=== PATIENT | male | born 1950 | race Caucasian/White ===

== ENCOUNTER 2018-10-20 10:02 | Inpatient (IN) ==
--- NOTE | 2018-09-23 12:14 | PAT Medication Instructions ---
Medication Instructions Date of Service September 23, 2018 Home Medications Coltrimazole-Betmame 1 dose TOPICAL NEEDED Xolair Injection 1 dose DIRECTED albuterol sulfate [Ventolin HFA] 1 - 2 puff INHALATION NEEDED aspirin [Aspir-81] 81 mg PO DAILY epinephrine [EpiPen] 0.3 mg IM Q3H NEEDED fluticasone 1 spray INTRANASAL DAILY fluticasone-vilanterol [Breo] 1 inh INHALATION DAILY hydrochlorothiazide 25 mg PO QAM montelukast 10 mg PO HS multivitamin [Multiple Vitamins] 1 tab PO DAILY nystatin-triamcinolone 1 applic TOPICAL NEEDED omeprazole 20 mg PO QAM simvastatin 20 mg PO HS tiotropium bromide [Spiriva] 2 puff INHALATION DAILY tramadol-acetaminophen 1 tab PO TID NEEDED trazodone 50 mg PO HS Continue as directed Xolair Injection 1 dose DIRECTED epinephrine [EpiPen] 0.3 mg IM Q3H NEEDED STOP taking 24 hours before surgery Coltrimazole-Betmame 1 dose TOPICAL NEEDED nystatin-triamcinolone 1 applic TOPICAL NEEDED DO NOT take the morning of surgery aspirin [Aspir-81] 81 mg PO DAILY fluticasone 1 spray INTRANASAL DAILY hydrochlorothiazide 25 mg PO QAM multivitamin [Multiple Vitamins] 1 tab PO DAILY Take morning of surgery With a small sip of water, OTHERWISE NOTHING TO EAT OR DRINK AFTER MIDNIGHT: albuterol sulfate [Ventolin HFA] 1 - 2 puff INHALATION NEEDED (Bring to hospital) fluticasone-vilanterol [Breo] 1 inh INHALATION DAILY omeprazole 20 mg PO QAM tiotropium bromide [Spiriva] 2 puff INHALATION DAILY tramadol-acetaminophen 1 tab PO TID NEEDED Take evening before surgery albuterol sulfate [Ventolin HFA] 1 - 2 puff INHALATION NEEDED montelukast 10 mg PO HS simvastatin 20 mg PO HS tramadol-acetaminophen 1 tab PO TID NEEDED trazodone 50 mg PO HS Other Notes If you have any questions please call us at [phone] or [phone] or [phone] or [phone]
--- NOTE | 2018-09-23 12:53 | Anesthesiology Consultation ---
Date of Service September 23, 2018 Assessment & Plan (1) Encounter for pre-operative examination: Chart Review Chart Review: Acceptable Risk for Surgery and Patient seen in Pre Admission Testing Consults Requested medical & cardiac (Dr. Ren (09/29)) Pulmonology (Dr. Harry (10/09)) Patient was seen by PCPs office on 09/29/18. Note from that visit states "Patient is cleared for upcoming procedure from PCP standpoint pending EKG and clearance from cardio" Patient was seen by cardiology on 10/13/18 and note states that "He is optimized from a cardiology standpoint for his upcoming surgery." Patient was seen by pulmonology on 10/09/18 and note states that "Patient cleared for surgery under general anesthesia as well as spinal anesthesia. Patient aware of risk involved from surgery patient is aware that he may have acute exacerbation of his asthma/pneumonia. Patient is at intermediate risk for pulmonary complications based on ariscat score index. Recommend to give him albuterol nebulization-up prior to the procedure. If need be to give him dexamethasone if has any wheezing." Teaching & Discussion Pre-Anesthesia Teaching/Discussion Notes: Instructed NPO after midnight before surgery, except medications with 15 cc of water. Medication instructions provided according to the PAT guidelines. History Surgery Operation Date: 10/20/18 10:55 Proposed Procedures p Right Total Knee Arthroplasty - Vik Purdy DO Height/Weight Height: 5 ft 10.5 in Weight: 132.9 kg Allergies Allergy/AdvReac Type Severity Reaction Status Date / Time house dust Allergy Unknown ALLERGIC Verified 09/16/18 10:59 PER ALLERGY TEST - NO REACTION WITH Penicillins Allergy Unknown Rash Verified 09/16/18 10:59 cut grass Allergy Unknown ALLERGIC Uncoded 09/16/18 11:31 PER ALLERGY TEST/NO REACTION WITH Medications Home Medications Medication Instructions Recorded Confirmed Last Taken Coltrimazole-Betmame 1 dose TOPICAL UD PRN 09/16/18 09/16/18 Unknown Xolair Injection 1 dose UD 09/16/18 09/16/18 Unknown albuterol sulfate [Ventolin HFA] 1 - 2 puff INHALATION UD PRN 09/16/18 09/16/18 Unknown aspirin [Aspir-81] 81 mg PO DAILY 09/16/18 09/16/18 Unknown epinephrine [EpiPen] 0.3 mg IM Q3H PRN 09/16/18 09/16/18 Unknown fluticasone 1 spray INTRANASAL DAILY 09/16/18 09/16/18 Unknown fluticasone-vilanterol [Breo 1 inh INHALATION DAILY 09/16/18 09/16/18 Unknown Ellipta] hydrochlorothiazide 25 mg PO QAM 09/16/18 09/16/18 09/16/18 montelukast 10 mg PO HS 09/16/18 09/16/18 09/15/18 multivitamin [Multiple Vitamins] 1 tab PO DAILY 09/16/18 09/16/18 Unknown nystatin-triamcinolone 1 applic TOPICAL UD PRN 09/16/18 09/16/18 Unknown omeprazole 20 mg PO QAM 09/16/18 09/16/18 09/16/18 simvastatin 20 mg PO HS 09/16/18 09/16/18 09/15/18 tiotropium bromide [Spiriva 2 puff INHALATION DAILY 09/16/18 09/16/18 Unknown Respimat] tramadol-acetaminophen 1 tab PO TID PRN 09/16/18 09/16/18 Unknown trazodone 50 mg PO HS 09/16/18 09/16/18 09/15/18 Past Medical History Medical History Acid reflux Amputation, finger, traumatic PARTIAL, 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 Asthma COPD (chronic obstructive pulmonary disease) pulm/Rajefhrao Hyperlipidemia Seasonal allergies Sleep apnea cpap Past Family History Family History Brother Family history of skin cancer Past Surgical History Surgical History History of Achilles tendon repair LEFT History of appendectomy History of colonoscopy History of dental surgery MULTIPLE TEETH PULLED History of hand surgery bone spur right wrist History of hernia repair multiple (BILATERAL INGUINAL, SEVERAL UMBILICAL AND VENTRAL) History of laparoscopic cholecystectomy History of rotator cuff surgery left History of tonsillectomy Hx of varicose veins SURGERY FOR/LEFT Past Anesthesia History No Hx of Anesthesia Complications and No Family Hx of Anesthesia Complications History of PONV No Motion Sickness Screening History of Motion Sickness: No Social History Smoking Status: Former smoker tobacco type: cigarettes Do You Dip or Chew Tobacco: No (HX OF) Smoking End Date: QUIT 30 + YRS AGO Hx Alcohol Use: Yes alcohol intake frequency: holidays/special occasions only (When fishing) Hx Substance Use: No substance use type: does not use Exercise / Class Metabolic Activity II 4-5 Yardwork/Stairs/Walk up hill (Limited due to knee pain. Climbs FOS without CP or SOB. ) Review of Systems Patient denies chest pain, shortness of breath, dyspnea on exertion, cough, palpitations. +joint pain (knees, right shoulder, back) +reflux (controlled by medications) +wheezing (COPD) Physical Exam Vital Signs BP: 153/89 P: 83 R: 20 T: 98.3 SPO2: 96% on RA Constitutional + morbidly obese ENMT Mouth: + dentures (upper and lower) and + edentulous Thyromental Distance: > or= 3.5 Finger Breadths (4) Mallampati Class: I Neck normal visual inspection, trachea midline, + thick neck and + facial hair ( Advised); neck extension not limited Respiratory normal respiratory effort Auscultation: lungs clear to auscultation bilaterally Cardiovascular Rate/Rhythm: regular rate and regular rhythm Heart Sounds: + murmur (3/6 systolic murmur) Vessels: no carotid bruit Neurologic moves all extremities Psychiatric Orientation: alert and oriented x 3 Testing Electrocardiogram Date: 09/23/18 Findings: + NSR @ (78) Chest X-Ray Date: 09/23/18 Findings: + NAD FINDINGS: The heart is the upper limits of normal in size. There is no failure. There is no focal pulmonary consolidation. There are no pleural effusions. Left basilar opacities are felt to reflect a combination of fat pad and subsegmental atelectatic change. Degenerative changes are present within the spine. IMPRESSION: No active disease in the chest. Echocardiogram Date: 10/06/18 EF: 63% RWMA: + none Valvular Disease: + no significant valvular disease Aortic sclerosis without stenosis or regurgitation. Increased LV size (59mm). Laboratory Results 09/23/18 13:34 09/23/18 13:34 Blood Type O Negative 09/23/18 13:35 Antibody Screen NEGATIVE 09/23/18 13:35 PT 11.9 Seconds (9.0-12.0) 09/23/18 13:34 INR 1.2 (0.9-1.1) H 09/23/18 13:34 APTT 32.4 Seconds (21.0-31.0) H 09/23/18 13:34 Hemoglobin A1c 6.2 % (4.5-5.6) H 09/23/18 13:34 Urine Color Yellow 09/23/18 Unknown Urine Appearance Clear (Clear) 09/23/18 Unknown Urine pH 6.5 (4.5-7.5) 09/23/18 Unknown Ur Specific [place] 1.018 (1.000-1.030) 09/23/18 Unknown Urine Protein Negative (Negative) 09/23/18 Unknown Urine Glucose (UA) Negative (Negative) 09/23/18 Unknown Urine Ketones Negative (Negative) 09/23/18 Unknown Urine Nitrite Negative (Negative) 09/23/18 Unknown Ur Leukocyte Esterase Negative (Negative) 09/23/18 Unknown 09/23/18 Unknown Urine Culture - Final Urine,Clean Catch No growth - less than 1,000 colonies/mL.
--- NOTE | 2018-09-23 14:09 | XRay Report ---
XR chest Pre-admission PA/Lat CLINICAL HISTORY: Preoperative chest COMPARISON STUDY: None FINDINGS: The heart is the upper limits of normal in size. There is no failure. There is no focal pul monary consolidation. There are no pleural effusions. Left basilar opacities are felt to reflect a co mbination of fat pad and subsegmental atelectatic change. Degenerative changes are present within the spine.[ IMPRESSION: No active disease in the chest. Electronically signed by: Hossein George M.D. 09/23/2018 2:08 PM
[2018-09-23 15:03] LABS: INR 1.2 (0.9-1.1); Partial Thromboplastin Ratio 1.2; Partial Thromboplastin Time 32.4 Seconds (21.0-31.0); Prothrombin Time 11.9 Seconds (9.0-12.0)
[2018-09-23 15:14] LABS: Albumin Level 3.8 gm/dl (3.4-5.0); BUN Creatinine Ratio 10.2 (10-20); Calcium 9.5 mg/dl (8.5-10.1); Creatinine Clr Calc Pharmacy 101.4 ml/min; Est GFR (African American) 91.6; Potassium 3.4 mmol/L (3.5-5.1)
[2018-09-23 15:17] LABS: Appearance Urine Clear (Clear); Bilirubin Urine Negative (Negative); Blood Urine Negative (Negative); Color Urine Yellow; Glucose Urine UA Negative (Negative); Ketones Urine Negative (Negative); Leukocyte Esterase Urine Negative (Negative); Nitrite Urine Negative (Negative); Protein Urine Negative (Negative); Specific Gravity Urine 1.018 (1.000-1.030); Urobilinogen Urine Negative (Negative); pH Urine 6.5 (4.5-7.5)
[2018-09-23 15:30] LABS: ALC (manual) 1.59 K/uL (1.2-3.4); Basophils # (manual) 0.15 K/uL (0-0.2); Basophils % (manual) 2.6 %; Eosinophils # (manual) 0.15 K/uL (0-0.5); Eosinophils % (manual) 2.6 %; Hematocrit (blood only) 47.1 % (42-52); Hemoglobin 15.9 g/dL (14.0-18.0); Lymphocytes # (manual) 0.87 K/uL (1.2-3.4); Lymphocytes % (manual) 14.8 %; Mean Corpuscular Hgb Conc 33.8 g/dL (32-36); Mean Corpuscular Volume 98.7 fL (80-100); Monocytes # (manual) 0.46 K/uL (0.11-0.59); Monocytes % (manual) 7.8 %; Platelet Count 101 K/uL (130-400); Platelet Estimate Decreased (Normal); RBC Morphology Unremarkable; RDW Standard Deviation 46.5 fL (36.4-46.3); Reactive Lymphocytes # (manual) 0.72 K/uL; Red Blood Count 4.77 M/uL (4.7-6.1); White Blood Count 5.89 K/uL (4.8-10.8)
[2018-09-24 05:47] LABS: Estimated Average Glucose 131 mg/dl; Hemoglobin A1C 6.2 % (4.5-5.6)
--- NOTE | 2018-10-18 12:38 | History & Physical Report ---
Date of Service October 18, 2018 Assessment & Plan (1) Degenerative joint disease of knee: I have indicated the patient for right total knee replacement. The risks , benefits and complications of surgery were explained to the patient which include but not limited to infection, acute blood loss, DVT/PE, injury to nerves , vessels, bone, soft tissue, arthrofibrosis, chronic pain, failure of the prosthesis, knee dislocation, leg length discrepancy, need for additional surgery, cardiac and pulmonary events and . The patient wished to proceed with surgery and informed consent was obtained at this time. We will plan for ASA 325 BID post-operatively for DVT prophylaxis. Upon discharge the patient will be discharged home with home health services. Appropriate clearances by PCP, cardio, pulm were obtained. History of Present Illness Chief Complaint: Right knee pain/djd Primary Care Provider: Enrico Harry The patient is a 68 year old male who presents with complaints of severe right knee pain and DJD. The patient has failed outpatient conservative treatments to this point which included NSAIDs, IA corticosteroid injection, home exercise/ walking program. The patient's pain and limited function have progressed to the point where they severely hinder their activities of daily living and they no longer tolerate exercise programs. They are requesting to proceed with total knee replacement surgery. Allergies Allergy/AdvReac Type Severity Reaction Status Date / Time house dust Allergy Unknown ALLERGIC Verified 10/20/18 10:26 PER ALLERGY TEST - NO REACTION WITH Penicillins Allergy Unknown Rash Verified 10/20/18 10:26 cut grass Allergy Unknown ALLERGIC Uncoded 10/20/18 10:26 PER ALLERGY TEST/NO REACTION WITH Home Medications Home Medications Medication Instructions Recorded Confirmed Type Coltrimazole-Betmame 1 dose TOPICAL UD PRN 09/16/18 10/20/18 History Xolair Injection 1 dose UD 09/16/18 10/20/18 History albuterol sulfate [Ventolin HFA] 1 - 2 puff INHALATION UD PRN 09/16/18 10/20/18 History aspirin [Aspir-81] 81 mg PO DAILY 09/16/18 10/20/18 History epinephrine [EpiPen] 0.3 mg IM Q3H PRN 09/16/18 10/20/18 History fluticasone 1 spray INTRANASAL DAILY 09/16/18 10/20/18 History fluticasone-vilanterol [Breo 1 inh INHALATION DAILY 09/16/18 10/20/18 History Ellipta] hydrochlorothiazide 25 mg PO QAM 09/16/18 10/20/18 History montelukast 10 mg PO HS 09/16/18 10/20/18 History multivitamin [Multiple Vitamins] 1 tab PO DAILY 09/16/18 10/20/18 History nystatin-triamcinolone 1 applic TOPICAL UD PRN 09/16/18 10/20/18 History omeprazole 20 mg PO QAM 09/16/18 10/20/18 History simvastatin 20 mg PO HS 09/16/18 10/20/18 History tiotropium bromide [Spiriva 2 puff INHALATION DAILY 09/16/18 10/20/18 History Respimat] tramadol-acetaminophen 1 tab PO TID PRN 09/16/18 10/20/18 History trazodone 50 mg PO HS 09/16/18 10/20/18 History Past Med/Surg History Medical History Acid reflux Amputation, finger, traumatic PARTIAL, 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 Asthma COPD (chronic obstructive pulmonary disease) pulm/Rajefhrao Hyperlipidemia Seasonal allergies Sleep apnea cpap Surgical History History of Achilles tendon repair LEFT History of appendectomy History of colonoscopy History of dental surgery MULTIPLE TEETH PULLED History of hand surgery bone spur right wrist History of hernia repair multiple (BILATERAL INGUINAL, SEVERAL UMBILICAL AND VENTRAL) History of laparoscopic cholecystectomy History of rotator cuff surgery left History of tonsillectomy Hx of varicose veins SURGERY FOR/LEFT Family History Brother Family history of skin cancer Social History Current Living Situation: Spouse Other Information That Helps Us Care for You: No Feels Safe at Home: Yes Smoking Status: Former smoker Tobacco Type: cigarettes Do You Dip or Chew Tobacco: No (HX OF) Smoking End Date: QUIT 30 + YRS AGO Hx Alcohol Use: Yes Alcohol Intake Frequency: holidays/special occasions only ( When fishing) Hx Substance Use: No Beliefs That Will Affect Care: None Preferred Language: Stateless Communication Ability: Effective Anesthesiology Resident Required: No Review of Systems All systems reviewed & are unremarkable except as noted in HPI & below Physical Exam 2 Physical Exam: RLE NVSI +EHL/FHL/TA/GS SILT grossly, +2 DP pulse, compartments soft NT, painful limited ROM, genuvarum, 5-115 degrees, +crepitus Constitutional: WD/WN, vitals as above Eyes: PERRL, conjunctivae normal, anicteric sclerae ENMT: external ear and nose normal, oropharynx normal Neck: trachea midline, no thyromegaly Respiratory: normal respiratory effort, lungs clear to auscultation Cardiovascular: RRR, no murmur, no edema Gastrointestinal (Abdomen): normal bowel sounds, soft, nontender, no hepatosplenomegaly Musculoskeletal: no cyanosis or clubbing, extremities motor strength 5/5 Skin: no rashes, warm and dry Neurologic: patellar DTR's 2+ bilat, sensation intact Psychiatric: A+Ox3, euthymic affect Genitourinary: no testicular masses, no penis abnormality Lymphatic: no cervical or axillary lymphadenopathy Results & Data Diagnostic Findings Multiple views of the knee demonstrates severe tricompartmental DJD with complete loss of the medial joint space, narrowing of the lateral compartment and PFJ. +osteophytes, +sclerosis, +subchondral cysts.
[~2018-10-20 10:02] MED LIST: ACETAMINOPHEN 500 MG TAB PO SCH; BUPIVACAINE 0.5 % 5 MG/1 ML PF 10ML VIAL ONE; CEFAZOLIN 3000MG 65 ML IV SCH; CeleBREX 200 MG CAP PO SCH; EPINEPHrine INJ 1 MG/ML AMP ONE; FAMOTIDINE 20 MG TAB PO SCH; LR 500ML BOLUS, THEN 15ML/HR IV SCH; METOCLOPRAMIDE HCL 10 MG TABLET PO SCH; ROPIVACAINE 0.5% 5 MG/ML 30 ML VIAL ONE; ROPIVACAINE 0.5% HCL/PF 150 MG, BUPIVACAINE 0.5% MPF 30 ML, EPINEPHrine 30MG/30ML (OR U... INFIL SCH; TRANEXAMIC ACID 1,000 MG **IV Intra-op IV SCH; TRANEXAMIC ACID 1,000 MG **IV Pre-op IV SCH; dexAMETHasone 4 MG TAB PO SCH
[2018-10-20] MEDS ORDERED: MIDAZOLAM HCL 1 MG/ML 2ML VIAL ONE (10:28)
[2018-10-20] MEDS ORDERED: KETAMINE HCL INJ 50 MG/ML 10 ML VIAL ONE (10:28)
[2018-10-20] MEDS ORDERED: BACITRACIN INJ 50,000 UNIT VIAL ONE (10:30)
[2018-10-20] MEDS ORDERED: POVIDONE-IODINE OP SOLN 30 ML BTL ONE (10:30)
[2018-10-20] MEDS ORDERED: ORTHO JOINT ANESTHETIC ONE (10:30)
--- NOTE | 2018-10-20 11:51 | History & Physical Bridge Note ---
Date of Service October 20, 2018 History & Physical Bridge Note I have examined the patient, reviewed the History & Physical and in the interval since the performance of the History & Physical I have noted the following changes of clinical significance: no changes noted
[2018-10-20] MEDS ORDERED: GLYCOPYRROLATE 0.2 MG/ML VIAL ONE (12:35)
[2018-10-20] MEDS ORDERED: LIDOCAINE HCL 2% 2 ML VIAL/AMP(20MG/ML) INFIL ONE (12:35)
[2018-10-20] MEDS ORDERED: DEXAMETHASONE SOD INJ 4 MG/ML VIAL ONE (12:35)
[2018-10-20] MEDS ORDERED: PROPOFOL IV EMULSION 10 MG/ML 20 ML VIAL IV ONE (12:35)
[2018-10-20] MEDS ORDERED: ONDANSETRON INJ 2 MG/ML 2 ML VIAL ONE (12:35)
[2018-10-20] MEDS ORDERED: fentaNYL citrate 100 MCG/2 ML VIAL ONE (12:42)
[2018-10-20] MEDS ORDERED: HYDROmorphone INJ 2 MG/ML SYR/VIAL ONE (13:03)
--- NOTE | 2018-10-20 14:05 | Post Operative Brief Note ---
Immediate Post Op Note v1 Date of Surgery October 20, 2018 Pre & Post Diagnosis Operation Date: 10/20/18 12:15 Pre-Op Diagnosis: Right Knee Osteoarthritis Post-Op Diagnosis: Right Knee Osteoarthritis Procedure Operation Date: 10/20/18 12:15 Actual Procedures p Right Total Knee Arthroplasty(Right) - Vik Purdy DO Surgeon Vik Purdy DO Patient Transporter Lobo Bojorquez Estimated Blood Loss 75 Findings Consistent with Post-Op Diagnosis Fluids 1200 cc Specimens Distal femur and proximal tibia bone fragments Anesthesia Type General Regional Complications none Disposition Disposition: Recovery Room Overlapping Procedure I was present for: the critical portions of procedure. I was immediately available: during the entire case. Back up surgeon: was not required during procedure.
--- NOTE | 2018-10-20 14:18 | Operative Report ---
Post Operative Report Pre & Post Diagnosis Operation Date: 10/20/18 12:15 Pre-Op Diagnosis: Right Knee Osteoarthritis Post-Op Diagnosis: Right Knee Osteoarthritis Procedure Operation Date: 10/20/18 12:15 Actual Procedures p Right Total Knee Arthroplasty(Right) - Vik Purdy DO Surgeon Vik Purdy DO Post Graduate Internship Lobo Bojorquez Estimated Blood Loss 75 Findings Consistent with Post-Op Diagnosis Fluids 1200cc Specimens Distal femur, proximal tibia bone fragment Anesthesia Type General Regional Complications none Disposition Disposition: Recovery Room Indications The patient is a 68-year-old male presents with long history of severe right knee tricompartmental DJD and failed outpatient conservative treatments including NSAIDs, bracing, injections and home walking/exercise program. The patient's symptoms have progressed to the point where it has been difficult to perform normal activities of daily living. I have indicated the patient for a right total knee arthroplasty, the risks and benefits and complications of the procedure include but are not limited to infection bleeding damage to bone, nerves, vessels, surrounding soft tissue, blood clots, loss of function, leg length discrepancy, dislocation, failure of the components, need for additional surgery and . The patient wished to proceed with surgery at this time and informed consent was obtained. Appropriate clearances were obtained. Description of Procedure Following induction of general anesthesia, a tourniquet was applied to the proximal aspect of the thigh and the patient's right leg was prepped and draped in the usual sterile manner. A timeout was performed and site linwood verified. Appropriate pre-operative IV antibiotics were given. The limb was e xsanguinated with an Esmarch bandage and tourniquet was inflated to 300 mmHg. A longitudinal midline incision was made over the anterior knee. Subcutaneous tissue was sharply dissected down to fascia. Electrocautery was used for hemostasis. Next a parapatellar arthrotomy was performed. Patella was everted and the knee was flexed. A Fox retractor was used to expose the synovium above on the anterior aspect of the femur and removed down to bone. Next, the anterior fat pad was removed to aid in visualization. The medial face of the tibia was cleared of soft tissue first with a Bovie and a urena elevator. This tissue was retracted posteriorly using a blunt Hohmann. Next, the extra-medullary tibial cutting guide was placed to the anterior aspect of the tibia. The tibia resection level was set taking 2mm from the defective tibial condyle. Resection depth was once again confirmed with faustino wing. The medial and lateral collateral ligament was protected with two Hohmann retractors. The tibia guide was removed and proximal tibial bone fragment removed utilizing straight osteotome, electrocautery and Lety. Next, the distal femur intramedullary canal was accessed utilizing the step drill. The intramedullary distal femur cutting guide was placed into the canal and pinned into place. The distal femur was cut on the 5 degree setting. Next the cutting guide was removed and the femur was sized. Care was taken to ensure appropriate cotton program technician all rotation and 3 degree holes were drilled. A size 11 4-in-1 cutting block was placed on the distal end of the femur and secured into place with two short headed screws. Two bent Hohmann retractors were placed to protect the medial and lateral collateral ligaments. The oscillating saw was used to cut anterior, posterior, anterior chamfer and posterior chamfer. The four and one cutting block was removed and bone fragments excised. Laminar lpta was placed laterally and the ACL and PCL were removed followed by the medial meniscus and posterior medial osteophytes. Aquamantys was utilized for any posterior medial bleeders and Orthomix injected into the posterior medial capsule. A laminar lpta was then placed in the medial compartment and the lateral meniscus and posterior osteophytes were removed. Aquamantys was utilized for any posterior lateral bleeders and Orthomix injected into the posterior lateral capsule. Next, drop zach and spacer block were placed with the leg in flexion and extension to assess alignment and flexion/extension gaps. Next, the proximal tibia was assessed and two bent Hohmans were placed medial and lateral to aid in visualization. The appropriate tibia size and rotation was selected and a size H tibial plate was pinned into place with appropriate r otation. Preparation of the tibia was completed utilizing the matching tibial drill for 14 x 30mm stem extension and broach. I then turned my attention back to the distal femur in a trial femoral component was impacted into place. Appropriate femoral width was assessed and selected. Next the femur PS box cut guide was placed and cut made with the reciprocal saw and the PS box provisional placed. A trial size 11 PS tibia articular tray was placed and varus-valgus balance assessed in 0 degrees of extension and 30, 60 and 90 degrees of flexion. A final tibial articular surface size 11 PS was chosen. Assess was gained to the patella and caliper utilized to measure width. The patella reamer was utilized and remaining bone removed with oscillating saw. A size 38 patella button was selected and the patella pegs drilled. Trial patella button was placed and tracking was assessed. The knee was found to be well balanced, well aligned with excellent patella tracking. The trials were removed and final components were obtained and assembled. The knee was irrigated copiously with sterile saline solution mixed with bacitracin. Access to the proximal tibia was once again obtained utilizing to the Hohmans and the proximal tibia and distal femur were dried with lap sponges. The final components were cemented into place and all excess cement was removed. A trial tibial articular surface was placed while cemented hardened. Knee stability was once again assessed and the final component inserted. The knee was injected with the remaining Orthomix which includes a combination of Ropivicaine 0.5% 150mg, Bupivicaine 0.5%/Epinephrine 1:200,000 30ml, Toradol 30mg, Dexamethasone 4mg, Ketamine 10mg, Clonidine 100mcg and NSS 30ml solution and irrigated once more with sterile saline solution mixed with bacitracin. The capsulotomy was closed with #1 Vicryl followed by subcutaneous closure with 2-0 Vicryl suture and a 3-0 V-lock suture. Skin closure was performed using martha, sterile dressings silverlong were applied followed by amena wrap. The patient tolerated the procedure well and was taken to the PACU in stable condition. Due to the complex nature of the procedure, the entire surgery was performed with the operational assistance of Lobo Bojorquez PA-C. The fish hatchery assistant, under direct supervision, was involved in the actual performance of all aspects of the surgical procedure including patient positioning, hemostasis, tissue retraction, instrument management and wound closure. I attest to the content of the Intraoperative Record and any orders documented therein. Any exceptions are noted below.
--- NOTE | 2018-10-20 14:55 | XRay Report ---
XR knee RT 2V routine CLINICAL HISTORY: Surgical Post Op COMPARISON: None. DISCUSSION: Anatomic alignment post total right knee arthroplasty. Good contact between prosthetic an d underlying bone. Expected postoperative soft tissue change. IMPRESSION: Anatomic alignment post total right knee arthroplasty. The above report was generated using voice recognition software. It may contain grammatical, syntax or spelling errors. Electronically signed by: Srini Donovan M.D. 10/20/2018 2:54 PM
--- NOTE | 2018-10-20 15:17 | Anesthesiology Progress Note ---
Date of Service October 20, 2018 Anesthesia Post Procedure Vital Signs Vital Signs: Temp Pulse Pulse Resp BP Pulse Ox 10/20/18 15:07 86 15 104/67 92 10/20/18 15:00 86 11 L 99/61 L 92 10/20/18 14:50 89 20 103/62 93 10/20/18 14:41 36.8 C 90 20 103/58 L 93 10/20/18 10:20 36.8 C 84 18 132/88 96 Notes Mental Status: alert / awake / arousable Patient Amnestic to Procedure: Yes Nausea / Vomiting: adequately controlled Pain: adequately controlled Airway Patency, RR, SpO2: stable & adequate BP & HR: stable & adequate Hydration State: stable & adequate Anesthetic Complications: no major complications apparent Notes: Awake, doing well, no complaints. VSS.
[2018-10-20] MEDS ORDERED: HYDROmorphone INJ 0.5 MG/0.5 ML SYR IV PRN (15:48)
[2018-10-20] MEDS ORDERED: ALBUTEROL HFA 8 GM INHALER INH PRN (15:48)
[2018-10-20] MEDS ORDERED: METOCLOPRAMIDE HCL INJ 5 MG/ML 2 ML VIAL IV PRN (15:48)
[2018-10-20] MEDS ORDERED: NALOXONE HCL 0.4 MG/1 ML VIAL/CARP IV PRN (15:48)
[2018-10-20] MEDS ORDERED: ONDANSETRON INJ 2 MG/ML 2 ML VIAL IV PRN (15:48)
[2018-10-20] MEDS ORDERED: BISACODYL 10 MG SUPP PR PRN (15:48)
[2018-10-20] MEDS ORDERED: MAGNESIUM HYDROXIDE SUSP 30 ML UDC PO PRN (15:48)
[2018-10-20] MEDS: KETOROLAC TROMETHAMINE 15 MG/ML VIAL IV SCH ×2 (16:22→22:36)
--- NOTE | 2018-10-20 18:33 | Orthopedic Progress Note ---
Date of Service October 20, 2018 Assessment & Plan (1) Degenerative joint disease of knee: s/p R TKA -ancef x 24 -DVT ppx ASA BID, SCDs, TEDS -WBAT RLE -PT/OT -PO XR demonstrates a well aligned well fixed orthopedic prosthesis without evidence of fracture or dislocation -am labs -DC planning: home with HH Subjective Post Operative Progress Note Patient seen sitting up in bed, comfortable, denies complaints, pain well controlled, no acute issues. Physical Exam 2 Vital Signs (Past 24 Hours): Last Vital Signs Temp 36.7 C 10/20/18 16:41 Pulse 89 10/20/18 17:41 Resp 17 10/20/18 17:41 BP 122/73 10/20/18 17:41 Pulse Ox 97 10/20/18 17:41 Physical Exam: RLE NVSI +EHL/FHL/TA/GS SILT grossly, +2 DP pulse, compartments soft NT, dressing cdi. Constitutional: WD/WN, vitals as above
[2018-10-20] MEDS: SODIUM CHLORIDE 0.9% 1000ML 1,000 ML IV SCH (21:13)
[2018-10-20] MEDS: CEFAZOLIN 2000MG 2,000 MG/15 ML SYR IV SCH (21:13)
[2018-10-20] MEDS: MONTELUKAST SODIUM 10 MG TABLET PO SCH (21:28)
[2018-10-20] MEDS: SENNA 8.6 MG TAB PO SCH (21:28)
[2018-10-20] MEDS: DOCUSATE SODIUM 100 MG CAP PO SCH (21:29)
[2018-10-20] MEDS: SIMVASTATIN 20 MG TAB PO SCH (21:29)
[2018-10-20] MEDS: ASPIRIN 325 MG ECTAB PO SCH (21:29)
[2018-10-20] MEDS: ACETAMINOPHEN 500 MG TAB PO SCH (22:35)
[2018-10-21] MEDS: SODIUM CHLORIDE 0.9% 1000ML 1,000 ML IV SCH (03:30)
[2018-10-21] MEDS: CEFAZOLIN 2000MG 2,000 MG/15 ML SYR IV SCH (03:31)
[2018-10-21] MEDS: KETOROLAC TROMETHAMINE 15 MG/ML VIAL IV SCH ×2 (03:31→09:49)
[2018-10-21] MEDS: ACETAMINOPHEN 500 MG TAB PO SCH ×3 (05:31→22:37)
[2018-10-21 06:24] LABS: Hematocrit (blood only) 41.3 % (42-52); Hemoglobin 13.7 g/dL (14.0-18.0); Mean Corpuscular Hgb Conc 33.2 g/dL (32-36); Mean Corpuscular Volume 97.6 fL (80-100); RDW Standard Deviation 45.8 fL (36.4-46.3); Red Blood Count 4.23 M/uL (4.7-6.1); White Blood Count 10.45 K/uL (4.8-10.8)
[2018-10-21 06:30] LABS: Mean Platelet Volume 11.9 fL (7.4-10.4); Platelet Count 76 K/uL (130-400)
[2018-10-21] MEDS ORDERED: Nursing to Pharmacy Communication ONE (06:43)
[2018-10-21 06:54] LABS: BUN Creatinine Ratio 17.2 (10-20); Creatinine Clr Calc Pharmacy 80.5 ml/min; Est GFR (African American) 69.8; Est GFR (Non-African American) 60.2; Potassium 3.7 mmol/L (3.5-5.1)
--- NOTE | 2018-10-21 07:32 | Anesthesiology Progress Note ---
Date of Service October 21, 2018 Anesthesia Post Procedure Vital Signs Vital Signs: Temp Pulse Pulse Pulse Resp BP BP 10/21/18 02:44 36.8 C 73 17 119/72 10/20/18 23:32 37.1 C 93 H 17 113/69 10/20/18 19:08 37.2 C 96 H 18 138/86 10/20/18 17:41 89 17 122/73 10/20/18 16:41 36.7 C 87 18 130/79 10/20/18 16:12 36.6 C 83 18 128/79 10/20/18 15:50 37.0 C 89 18 123/75 10/20/18 15:20 36.6 C 84 17 104/74 10/20/18 15:10 86 15 104/67 10/20/18 15:00 86 11 L 99/61 L 10/20/18 14:50 89 20 103/62 10/20/18 14:41 36.8 C 90 20 103/58 L 10/20/18 10:20 36.8 C 84 18 132/88 Pulse Ox 10/21/18 02:44 98 10/20/18 23:32 93 10/20/18 19:08 96 10/20/18 17:41 97 10/20/18 16:41 97 10/20/18 16:12 97 10/20/18 15:50 95 10/20/18 15:20 94 10/20/18 15:10 92 10/20/18 15:00 92 10/20/18 14:50 93 10/20/18 14:41 93 10/20/18 10:20 96 Pain Intensity Right Knee: Pain Intensity: 8 Notes Mental Status: alert / awake / arousable and participated in evaluation Patient Amnestic to Procedure: Yes Nausea / Vomiting: adequately controlled Pain: adequately controlled Airway Patency, RR, SpO2: stable & adequate BP & HR: stable & adequate Hydration State: stable & adequate Anesthetic Complications: no major complications apparent and Pt Satisfied with anesthetic care
[2018-10-21] MEDS: hydroCHLOROthiazide 25 MG TAB PO SCH (08:45)
[2018-10-21] MEDS: ASPIRIN 325 MG ECTAB PO SCH ×2 (08:45→21:34)
[2018-10-21] MEDS: FLUTICASONE PROPIONATE NA SPR 16 GM BTL SCH (08:45)
[2018-10-21] MEDS: MULTIVITAMIN TAB PO SCH (08:45)
[2018-10-21] MEDS: DOCUSATE SODIUM 100 MG CAP PO SCH ×2 (08:45→21:34)
[2018-10-21] MEDS: TIOTROPIUM BROMIDE 5 PUFF/90 MCG INH INH SCH (08:46)
--- NOTE | 2018-10-21 09:10 | Progress Note ---
DATE: 10/21/2018 SUBJECTIVE: The patient is postop day 1, status post right total knee arthroplasty by Dr. Purdy. The patient is currently sitting up in bed and is awake and alert and oriented. He currently has no complaints. Pain is controlled. Denies shortness of breath, chest pain or lightheadedness. He states that he had a relatively good night and that he is hoping to possibly go home today depending on how he does with his physical therapy and pain control. OBJECTIVE: Dressings are clean, dry and intact. Calves were soft, nontender. Neurovascularly intact. Toes were mobile. ASSESSMENT: Postop day #1 status post right total knee arthroplasty. PLAN: The patient will be started on PT and OT protocols today and we will continue DVT prophylaxis with aspirin p.o. b.i.d., SCDs and KAREN jose mariae. We will continue his current pain regimen and we will recheck him later today to see how he is progressing with his physical therapy. Hemoglobin of note is a 13.7 and vital signs are stable.
[2018-10-21] MEDS: PANTOprazole 40 MG TAB PO SCH (09:49)
[2018-10-21] MEDS: OXYCODONE HCL IR 5 MG TAB (IMMEDIATE RELEASE) PO PRN ×3 (11:11→19:55)
[2018-10-21] MEDS: MONTELUKAST SODIUM 10 MG TABLET PO SCH (21:34)
[2018-10-21] MEDS: CeleBREX 200 MG CAP PO SCH (21:35)
[2018-10-21] MEDS: SIMVASTATIN 20 MG TAB PO SCH (21:35)
[2018-10-21] MEDS: SENNA 8.6 MG TAB PO SCH (21:35)
[2018-10-22] MEDS: OXYCODONE HCL IR 5 MG TAB (IMMEDIATE RELEASE) PO PRN ×3 (03:13→11:54)
[2018-10-22] MEDS: ACETAMINOPHEN 500 MG TAB PO SCH (05:47)
[2018-10-22 06:15] LABS: Hematocrit (blood only) 41.1 % (42-52); Hemoglobin 13.4 g/dL (14.0-18.0); Mean Corpuscular Hgb Conc 32.6 g/dL (32-36); Mean Corpuscular Volume 97.6 fL (80-100); Mean Platelet Volume 11.3 fL (7.4-10.4); Platelet Count 76 K/uL (130-400); RDW Coefficient of Variation 13.2 % (11.5-14.5); RDW Standard Deviation 46.9 fL (36.4-46.3); Red Blood Count 4.21 M/uL (4.7-6.1); White Blood Count 8.59 K/uL (4.8-10.8)
[2018-10-22 07:00] LABS: BUN Creatinine Ratio 24.2 (10-20); Calcium 8.1 mg/dl (8.5-10.1); Creatinine Clr Calc Pharmacy 101.8 ml/min; Est GFR (African American) 92.7; Potassium 3.8 mmol/L (3.5-5.1)
[2018-10-22] MEDS: ASPIRIN 325 MG ECTAB PO SCH (08:38)
[2018-10-22] MEDS: FLUTICASONE PROPIONATE NA SPR 16 GM BTL SCH (08:38)
[2018-10-22] MEDS: CeleBREX 200 MG CAP PO SCH (08:38)
[2018-10-22] MEDS: MULTIVITAMIN TAB PO SCH (08:38)
[2018-10-22] MEDS: PANTOprazole 40 MG TAB PO SCH (08:38)
[2018-10-22] MEDS: DOCUSATE SODIUM 100 MG CAP PO SCH (08:38)
[2018-10-22] MEDS: hydroCHLOROthiazide 25 MG TAB PO SCH (08:38)
[2018-10-22] MEDS: TIOTROPIUM BROMIDE 5 PUFF/90 MCG INH INH SCH (08:39)
--- NOTE | 2018-10-22 08:44 | Progress Note ---
DATE: 10/22/2018 SUBJECTIVE: The patient is postop day #2 status post right total knee arthroplasty. He is currently lying in bed, doing his bedside exercises. He is doing his heel props at this time without any difficulty. His pain is controlled and he has no complaints. He denies shortness of breath, chest pain or lightheadedness. He is hoping to go home today. OBJECTIVE: Dressings are clean, dry and intact with the Silverlon. Calves were soft, nontender. Neurovascularly intact. Toes were mobile. ASSESSMENT: Postoperative day #2 status post right total knee arthroplasty. PLAN: Continue PT, OT protocols today. Continue DVT prophylaxis and pain management. Plan for discharge to home today with home health services.
--- NOTE | 2018-10-25 19:04 | Discharge Summary ---
Date of Service October 25, 2018 Admission HPI Per Admitting Provider The patient is a 68 year old male who presents with complaints of severe right knee pain and DJD. The patient has failed outpatient conservative treatments to this point which included NSAIDs, IA corticosteroid injection, home exercise/walking program. The patient's pain and limited function have progressed to the point where they severely hinder their activities of daily living and they no longer tolerate exercise programs. They are requesting to proceed with total knee replacement surgery. Principal Diagnosis Right total knee replacement Discharge Exam RLE NVSI +EHL/FHL/TA/GS SILT grossly, +2 DP pulse, compartments soft NT, dressing cdi. Constitutional WD/WN, vitals as above Eyes PERRL, conjunctivae normal, anicteric sclerae ENMT external ear and nose normal, oropharynx normal Neck trachea midline, no thyromegaly Respiratory normal respiratory effort, lungs clear to auscultation Cardiovascular RRR, no murmur, no edema Gastrointestinal (Abdomen) normal bowel sounds, soft, nontender, no hepatosplenomegaly Musculoskeletal no cyanosis or clubbing, extremities motor strength 5/5 Skin no rashes, warm and dry Neurologic patellar DTR's 2+ bilat, sensation intact Psychiatric A+Ox3, euthymic affect Genitourinary no testicular masses, no penis abnormality Lymphatic no cervical or axillary lymphadenopathy Discharge Data Allergies Allergy/AdvReac Type Severity Reaction Status Date / Time house dust Allergy Unknown ALLERGIC Verified 10/20/18 10:26 PER ALLERGY TEST - NO REACTION WITH Penicillins Allergy Unknown Rash Verified 10/20/18 10:26 cut grass Allergy Unknown ALLERGIC Uncoded 10/20/18 10:26 PER ALLERGY TEST/NO REACTION WITH Consultations 10/20/18 15:48 Consult Case Management - Discharge Planning Routine Procedures Performed Operation Date: 10/20/18 12:15 Actual Procedures p Right Total Knee Arthroplasty(Right) - Vik Purdy DO Ordered Studies 10/20/18 05:00 US - OR guided needle placemen Routine Hospital Course (1) Degenerative joint disease of knee: The patient is a 68 -year-old male who presents with long standing history of severe right knee DJD and failed outpatient conservative treatments including NSAIDs, bracing, injections and home walking/exercise program. The patient's symptoms have progressed to the point where it has been difficult to perform even normal activities of daily living. I indicated the patient for a right total knee arthroplasty, the risks, benefits and complications of the procedure include but not limited to infection, bleeding, damage to bone, nerves, vessels, surrounding soft tissue, may develop blood clots, loss of function, leg length discrepancy, dislocation, failure of the components, loosening of the components, the need for additional surgery and . The patient wished to proceed with surgery at this time and informed consent was obtained. Hospital Course: On 10/20/18 the patient was taken to the operating room, adequate anesthesia administered and underwent a right total knee arthroplasty. The patient tolerated the procedure well and was taken to the PACU in stable condition. Post-operatively the patient was started on a DVT ppx medication and given appropriate IV antibiotics. Consults were placed to physical therapy, occupational therapy and case management. On POD#1, the patient did well overnight and their pain was well controlled. Labs were drawn and the Hgb was 13.7. The patient progressed well with PT. Dressings were changed at this time and the incision was clean, dry and intact. On POD#2, the patient continued to progress with PT meeting DC goals. Hgb was 13.4 The patients hospital stay was relatively uneventful and they were deemed stable by the orthopedic team and consultants to be discharged home with on 10/22/18. Discharge Instructions: Upon discharge the patient may weight bear as tolerates through their operative extremity. They were instructed to keep the incision clean and dry at all time s. The patient may shower but should not submerge the incision, avoid bathing, pools and hot tubes. The patient was given a script for pain medication and should take as instructed. The patient was given a script for DVT ppx ASA 325mg BID and should take as directed. The patient was instructed to not drive or travel for long distances until cleared to do so. If the patient develops any symptoms of fevers, chills, nausea, vomiting, increased redness, swelling, pain or drainage from the surgical site, they should notify the office and/or proceed to the nearest emergency room. The patient should follow up in 10-14 days after surgery for their routine post-operative follow-up appointment and should call the office to confirm the date and time. s/p R TKA -ancef x 24 -DVT ppx ASA BID, SCDs, TEDS -WBAT RLE -PT/OT -PO XR demonstrates a well aligned well fixed orthopedic prosthesis without evidence of fracture or dislocation -am labs -DC planning: home with HH Total Time Total Time Spent Total Time Spent (In Minutes): 45 minutes Total Time Includes: Examination of the Patient, Discharge Planning, Medication Reconciliation and Communication With Other Providers Discharge Plan Discharge Items Patient Disposition: Home - Home Health Services Reason For Visit: Right Knee Osteoarthritis Discharge Diagnosis: Right knee replacement Discharge Goals: Decrease discomfort, Improve function, Increase independence, Specific goals and Therapeutic intervention Activity: Per 'Additional Instructions' section Lifting: Wait until after follow-up appointment Bathing Comment: No bathing, pools or hot tubs Sexual Activity: Wait until after follow-up appointment Exercise/Sports: Wait until after follow-up appointment Driving/Machine Use Comment: No driving till cleared by your surgeon Weightbearing: Right weightbearing Non-emergency contact: Primary Care Provider and Surgeon Call non-emergency contact if: you have any medication questions, your symptoms worsen, your pain is not controlled, your pain is worsening, your pain is unusual for you, your pain is concerning for you, you have a fever, your temperature is above 101, your wound has increased redness, your wound has increased drainage and your wound pain has increased Follow-up/Referrals: Ronn Ren [Primary Care Provider] - Diet: Regular Addtl Provider Instructions: ACTIVITY RECOMMENDATIONS: SELF CARE INSTRUCTIONS AFTER TOTAL KNEE REPLACEMENT A. You may need to continue a physical therapy program after discharge from the hospital. There are several options available to you. Your doctor will assist you in selecting the best one for you. 1. An out-patient facility 2 to 3 times a week for therapy or home therapy. 2. Continue working on all exercises taught to you in the hospital. Your goals should be to increase bending of your knee to 90 degrees and beyond and to fully straighten your knee. B. You may progress at your own pace from walking with a walker or crutches to a cane; then to no assistive devices. C. Make walking a part of your daily routine. Be up as much as comfortable with rest periods throughout the day. Rest with leg elevation is very important. Use the ice wrap frequently for the first 3-4 weeks. D. There are no restrictions on activities. You may ride in a car, shop, participate in medical supply technician and all social activities. E. Wear the long elastic stockings (KAREN hose) 20 hours a day for 2 weeks after surgery. They can be removed several times a day for laundering and for a bath. F. You may shower, no tub baths until cleared by your doctor. SPECIAL CARE INSTRUCTIONS: VERY IMPORTANT TO READ AND REVIEW A. There are a few signs you need to watch for after you are home. Call [facility] if you notice any of the followin. Increased severe knee pain. Some pain is expected especially when you exercise. 2. Increased swelling in your leg or knee; pain or swelling of the calf muscle in either lower leg. 3. Any fluid drainage from the incision. 4. Shortness of breath or chest pain. B. Please call [facility] at if you have any concerns or questions about your operation or recovery. The doctor or his nurse will return your call promptly. C. You must take antibiotics before dental work, bladder, bowel or other surg jimenez. Your doctor will provide you with a permanent care to carry describing this precaution. IMPORTANT: * REMEMBER TO TAKE ASPIRIN, 325 MG, TWICE DAILY FOR 4 WEEKS UNLESS OTHERWISE DIRECTED. THIS IS YOUR BLOOD THINNER. * HIGH RISK PATIENTS MAY BE PRESCRIBED A STRONGER BLOOD THINNER. THIS WILL BE PROVIDED AT DISCHARGE. * CALL IF INCREASED PAIN, REDNESS, DRAINAGE OR FEVER GREATER THAT 101. * WEAR KAREN HOSE 20 HOURS PER DAY FOR 2 WEEKS. * Silverlon- This is a large adhesive bandage that contains silver ions. This helps your incision heal by fighting off bacteria and protecting it from the outside environment. You are permitted to shower with this dressing. This will remain on your incision for 7 days and then should be removed. Some visible blood or drainage through the dressing window is normal. If there is significant drainage or leaking noted before the 7 days notify your doctor's office immediately. Once removed, keep incision clean and dry. If there is any drainage or redness noted, please call your surgeon. . FOLLOW UP VISIT: If appointment is not already scheduled: Please call [facility] to make a follow-up appointment for 2 weeks after your surgery at . Prescriptions: New oxycodone 5 mg Tablet 5 mg PO Q6H MDD 6 PRN (Reason: pain) Qty: 30 RF: 0 acetaminophen [Pain Reliever] 500 mg Tablet 1,000 mg PO Q8 14 Days Qty: 84 RF: 0 aspirin 325 mg Tablet,Delayed Release (Dr/Ec) 325 mg PO BID 30 Days Qty: 60 RF: 0 celecoxib [Celebrex] 200 mg Capsule 200 mg PO BID PRN (Reason: pain) 14 Days Qty: 28 RF: 0 Continued nystatin-triamcinolone 100,000-0.1 unit/gram-% Ointment 1 applic TOPICAL UD PRN (Reason: Rash) RF: 0 simvastatin 20 mg Tablet 20 mg PO HS RF: 0 montelukast 10 mg Tablet 10 mg PO HS RF: 0 hydrochlorothiazide 25 mg Tablet 25 mg PO QAM RF: 0 epinephrine [EpiPen] 0.3 mg/0.3 mL Auto-Injector 0.3 mg IM Q3H PRN (Reason: DIRECTED) RF: 0 fluticasone 50 mcg/actuation [place],Suspension 1 spray INTRANASAL DAILY RF: 0 omeprazole 20 mg Tablet,Delayed Release (Dr/Ec) 20 mg PO QAM RF: 0 fluticasone-vilanterol [Breo Ellipta] 100-25 mcg/dose Blister With Device 1 inh INHALATION DAILY RF: 0 tiotropium bromide [Spiriva Respimat] 1.25 mcg/actuation Mist 2 puff INHALATION DAILY RF: 0 multivitamin [Multiple Vitamins] Tablet 1 tab PO DAILY RF: 0 albuterol sulfate [Ventolin HFA] 90 mcg/actuation Hfa Aerosol Inhaler 1 - 2 puff INHALATION UD PRN (Reason: DIRECTED) RF: 0 Coltrimazole-Betmame 1 dose topical UD PRN (Reason: Rash) RF: 0 Xolair Injection 1 dose UD RF: 0 Discontinued trazodone 50 mg Tablet 50 mg PO HS RF: 0 tramadol-acetaminophen 37.5-325 mg Tablet 1 tab PO TID PRN (Reason: Pain) RF: 0 aspirin [Aspir-81] 81 mg Tablet,Delayed Release (Dr/Ec) 81 mg PO DAILY RF: 0 Stand-Alone Forms: [facility], Opioid Pain Management Discharge Orders: Discharge Order (Routine); Ordered 10/22/18 Ordered By: Lobo Bojorquez Admission Data Admit Date/Time: 10/20/18 14:43 Attending Provider: Vik Purdy Admit Provider: Vik Purdy Primary Care Provider: Ronn Ren Service: Surgical Services Other Interventions: Discharge Summary Assessment (RN) Last Done: 10/22/18 09:22 DC Date/Time DO NOT enter until pt leaves facility: 10/22/18 12:35
== END 2018-10-22 12:35 | disposition home health service (06) | DRG 470 ==
LOC: ASU 10:02 → 3E 14:43